=== PATIENT | female | born 1950 | race Caucasian/White ===

== ENCOUNTER 2016-01-11 14:45 | Outpatient (RCR) | payer MEDICARE, OTHER ==
[~2016-01-11 14:45] MED LIST: KEFLEX500 MG PO; NO HOME MEDICATIONS
== END 2016-02-16 09:10 | disposition still patient (30) ==
LOC: MKS.ESL.PT 14:45
DX: M54.32 Sciatica, left side (principal)
CPT/HCPCS: G8978-GP; G8979-GP; G8980-GP

== ENCOUNTER → 2016-04-18 | Outpatient (CLI) | payer MEDICARE, OTHER | LOC: MC.RAD 09:40 | DX: Z12.31 Encounter for screening mammogram for malignant neoplasm of breast (principal) ==

== ENCOUNTER → 2017-05-08 | Outpatient (CLI) | payer MEDICARE, OTHER | LOC: MC.RAD 13:38 | DX: Z12.31 Encounter for screening mammogram for malignant neoplasm of breast (principal) ==

== ENCOUNTER 2018-04-06 15:45 | Outpatient (RCR) | payer MEDICARE, OTHER | END 2018-04-15 | disposition home or self-care (01) | LOC: MKS.ESL.PT | DX: R26.89 Other abnormalities of gait and mobility (principal) | CPT/HCPCS: G8978-GP; G8979-GP ==

== ENCOUNTER → 2018-06-07 | Outpatient (CLI) | payer MEDICARE, OTHER | LOC: MC.RAD 10:31 | DX: Z12.31 Encounter for screening mammogram for malignant neoplasm of breast (principal); N63.20 Unspecified lump in the left breast, unspecified quadrant ==

== ENCOUNTER → 2018-06-11 | Outpatient (CLI) | payer MEDICARE, OTHER | LOC: MC.RAD 10:36 | DX: N63.20 Unspecified lump in the left breast, unspecified quadrant (principal) ==

== ENCOUNTER → 2019-06-28 | Outpatient (CLI) | payer MEDICARE, OTHER ==
[~2019-06-28] MED LIST changes: +MASON NATURAL2000 IU PO; +NORCO 325 MG-51 TAB PO; +VITAMIN B11000 MCG/M IM
== END ==
LOC: MC.RAD 09:53
DX: Z12.31 Encounter for screening mammogram for malignant neoplasm of breast (principal); Z90.12 Acquired absence of left breast and nipple

== ENCOUNTER → 2019-08-28 | Outpatient (CLI) | payer MEDICARE, OTHER | LOC: COL.RAD 13:18 | DX: M46.1 Sacroiliitis, not elsewhere classified (principal) | CPT/HCPCS: G0260; J3301 ==

== ENCOUNTER 2020-06-17 10:00 | Outpatient (RCR) | payer MEDICARE, OTHER | END 2020-06-17 12:39 | disposition home or self-care (01) | LOC: MKS.ESL.PT 10:00 | DX: R26.89 Other abnormalities of gait and mobility (principal) ==

== ENCOUNTER → 2020-06-29 | Outpatient (CLI) | payer MEDICARE, OTHER | LOC: MC.RAD 10:19 | DX: Z12.31 Encounter for screening mammogram for malignant neoplasm of breast (principal); Z90.12 Acquired absence of left breast and nipple; Z98.82 Breast implant status; Z92.3 Personal history of irradiation; Z98.890 Other specified postprocedural states ==

== ENCOUNTER → 2021-04-05 | Outpatient (RCR) | payer MEDICARE, OTHER | END | disposition home or self-care (01) | LOC: MKS.ESL.PT | DX: M46.1 Sacroiliitis, not elsewhere classified (principal) ==

== ENCOUNTER 2021-05-05 14:15 | Outpatient (RCR) | payer MEDICARE, OTHER | END 2021-05-06 | disposition still patient (30) | LOC: MKS.ESL.PT | DX: M46.1 Sacroiliitis, not elsewhere classified (principal) ==

== ENCOUNTER 2021-05-31 12:45 | Outpatient (RCR) | payer MEDICARE, OTHER | END 2021-06-05 | disposition home or self-care (01) | LOC: MKS.ESL.PT | DX: M46.1 Sacroiliitis, not elsewhere classified (principal) ==

== ENCOUNTER 2021-06-07 12:32 | Outpatient (RCR) | payer MEDICARE, OTHER | END 2021-06-07 14:10 | disposition home or self-care (01) | LOC: MKS.ESL.PT 12:32 | DX: M46.1 Sacroiliitis, not elsewhere classified (principal) ==

== ENCOUNTER → 2021-06-17 | Outpatient (CLI) | payer MEDICARE, OTHER | LOC: COL.RAD 10:30 | DX: M46.1 Sacroiliitis, not elsewhere classified (principal) | CPT/HCPCS: G0260; J3301 ==

== ENCOUNTER → 2021-07-14 | Outpatient (CLI) | payer MEDICARE, OTHER | LOC: MC.RAD 14:04 | DX: Z12.31 Encounter for screening mammogram for malignant neoplasm of breast (principal) ==

== ENCOUNTER → 2022-04-26 | Outpatient (CLI) | payer MEDICARE, OTHER | LOC: COL.RAD 07:06 | DX: M16.0 Bilateral primary osteoarthritis of hip (principal); M47.816 Spondylosis without myelopathy or radiculopathy, lumbar region ==

== ENCOUNTER 2023-01-02 09:45 | Outpatient (RCR) | payer MEDICARE, OTHER | END 2023-01-05 | disposition home or self-care (01) | LOC: MKS.ESL.PT | DX: M25.561 Pain in right knee (principal); M25.562 Pain in left knee; G89.29 Other chronic pain ==

== ENCOUNTER 2023-01-20 09:45 | Outpatient (RCR) | payer MEDICARE, OTHER | END 2023-02-05 | disposition home or self-care (01) | LOC: MKS.ESL.PT | DX: M25.561 Pain in right knee (principal); M25.562 Pain in left knee; G89.29 Other chronic pain ==

== ENCOUNTER 2023-08-03 10:30 | Outpatient (RCR) | payer MEDICARE, OTHER | END 2023-08-06 | disposition home or self-care (01) | LOC: MKS.ESL.PT | DX: M25.562 Pain in left knee (principal); M25.561 Pain in right knee ==

== ENCOUNTER 2023-08-31 10:30 | Outpatient (RCR) | payer MEDICARE, OTHER | END 2023-09-06 | disposition home or self-care (01) | LOC: MKS.ESL.PT | DX: M25.562 Pain in left knee (principal) ==

== ENCOUNTER 2023-10-10 14:16 | Outpatient (RCR) | payer MEDICARE, OTHER | END 2023-11-06 | disposition home or self-care (01) | LOC: MKS.ESL.PT | DX: M25.561 Pain in right knee (principal); M25.562 Pain in left knee; G89.29 Other chronic pain ==